=== PATIENT | female | born 1980 | race Caucasian/White ===

== ENCOUNTER 2018-11-13 16:17 | Emergency (ER) | payer OTHER ==
[~2018-11-13] VITALS: Ht 162.6 cm; Wt 45.5 kg
[2018-11-13] MEDS ORDERED: HYDR-4031 PO (18:30)
[2018-11-13] MEDS ORDERED: ZOLP5 PO (18:30)
[2018-11-14 00:29] VITALS: BP 149/96
== END 2018-11-14 00:43 ==
LOC: EMS 16:20
DX: R45.851 Suicidal ideations (principal); F41.9 Anxiety disorder, unspecified